=== PATIENT | female | born 1995 | race Hispanic/Latino ===

== ENCOUNTER 2017-05-13 01:09 | Emergency (ER) | payer MEDICAID ==
[2017-05-13] MEDS ORDERED: MORPHINE SULFATE 8 MG/ML VIAL ONE (01:22)
[2017-05-13] MEDS ORDERED: ONDANSETRON ODT 4 MG TAB ONE (01:22)
[2017-05-13] MEDS ORDERED: TETANUS/DIPHTHERIA TOXOID [ADULT] 0.5 ML VIAL IM ONE (01:24)
[2017-05-13] MEDS ORDERED: ACETAMINOPHEN 325 MG TAB ONE (02:19)
[2017-05-13] MEDS ORDERED: LIDOCAINE HCL 1% 20 ML VIAL ONE (02:25)
[2017-05-13] MEDS ORDERED: HYDROCODONE/ACETAMINOPHEN 10/325 MG TAB ONE (04:55)
== END 2017-05-13 05:32 | disposition home or self-care (01) ==
LOC: EDH 01:09
DX: S01.81XA Laceration without foreign body of other part of head, initial encounter (principal); S01.312A Laceration without foreign body of left ear, initial encounter; Z72.0 Tobacco use; X99.0XXA Assault by sharp glass, initial encounter; Y93.89 Activity, other specified; Y92.89 Other specified places as the place of occurrence of the external cause; Y99.8 Other external cause status
CPT/HCPCS: 12014; 70450; 70486; 90471; 90714; 96372; 99284; J2270

== ENCOUNTER 2018-05-06 21:53 | Emergency (ER) | payer MEDICAID | END 2018-05-06 23:00 | disposition home or self-care (01) | LOC: EDH 21:53 | DX: J02.9 Acute pharyngitis, unspecified (principal); J30.9 Allergic rhinitis, unspecified; Z98.890 Other specified postprocedural states | CPT/HCPCS: 87880 ==

== ENCOUNTER 2019-04-05 14:44 | Emergency (ER) | payer MEDICAID ==
[2019-04-05] MEDS ORDERED: ACETAMINOPHEN 325 MG TAB ONE (15:16)
== END 2019-04-05 15:52 | disposition home or self-care (01) ==
LOC: EDH 14:44
DX: O99.513 Diseases of the respiratory system complicating pregnancy, third trimester (principal); O99.89 Other specified diseases and conditions complicating pregnancy, childbirth and the puerperium; J02.9 Acute pharyngitis, unspecified; H92.01 Otalgia, right ear; Z3A.31 31 weeks gestation of pregnancy; Z98.890 Other specified postprocedural states
CPT/HCPCS: 87880

== ENCOUNTER 2019-04-17 21:28 | Observation (INO) | payer MEDICAID ==
[~2019-04-17] VITALS: Ht 154.9 cm; Wt 68.9 kg
[2019-04-17] MEDS ORDERED: PREN-196 PO (23:10)
[2019-04-17] MEDS ORDERED: ESOM2.5S PO (23:11)
== END 2019-04-17 23:00 | disposition home or self-care (01) ==
LOC: LDH 21:28
PROVIDERS: ADMIT Specialist; ATTEND Specialist
DX: O26.893 Other specified pregnancy related conditions, third trimester (principal); Z3A.33 33 weeks gestation of pregnancy
CPT/HCPCS: 76819; G0378 ×2

== ENCOUNTER 2019-04-28 18:06 | Observation (INO) | payer MEDICAID ==
[~2019-04-28] VITALS: Ht 154.9 cm; Wt 73.5 kg
[~2019-04-28 18:06] MED LIST: ESOM2.5S PO; PREN-196 PO
[2019-04-28 18:25] VITALS: BP 107/59
== END 2019-04-28 19:05 | disposition home or self-care (01) ==
LOC: LDH 18:06
PROVIDERS: ADMIT Specialist; ATTEND Specialist
DX: O09.293 Supervision of pregnancy with other poor reproductive or obstetric history, third trimester (principal); O34.219 Maternal care for unspecified type scar from previous cesarean delivery; Z3A.34 34 weeks gestation of pregnancy
CPT/HCPCS: 59025; 76819; G0378

== ENCOUNTER 2020-05-03 16:52 | Inpatient (IN) | payer MEDICAID ==
[~2020-05-03] VITALS: Ht 154.9 cm; Wt 76.2 kg
[2020-05-03] MEDS ORDERED: CEFAZOLIN SODIUM 1 GM VIAL IVP PRN (17:15)
[2020-05-03] MEDS ORDERED: LACTATED RINGERS 1000ML 1,000 ML IV SCH (17:15)
[2020-05-03 17:29] LABS: HEMATOCRIT 38.1 % (36-48); MEAN CORPUSCULAR HEMOGLOBIN 29.7 pg (27.0-33.0); MEAN CORPUSCULAR HGB CONC 33.1 g/dL (32.0-36.0); MEAN CORPUSCULAR VOLUME 89.9 fL (79-99); NUCLEATED RED BLOOD CELLS 0.2 % (0.0-0.19); RED BLOOD CELL COUNT(AUTO) 4.24 MIL/uL (4.00-5.50); RED CELL DISTRIBUTION WIDTH 12.7 % (11.0-15.5); WHITE BLOOD COUNT (AUTO) 9.8 K/uL (4.8-10.8)
[2020-05-03] MEDS ORDERED: METOCLOPRAMIDE 10 MG/2 ML VIAL ONE (19:09)
[2020-05-03] MEDS ORDERED: CITRIC ACID/SODIUM CITRATE 30 ML UDCUP ONE (19:13)
[2020-05-03] MEDS ORDERED: METOCLOPRAMIDE 10 MG/2 ML VIAL IVP SCH (19:15)
[2020-05-03] MEDS ORDERED: MORPHINE PF 100MG/10ML AMP IV ONE (19:23)
[2020-05-03] MEDS ORDERED: FENTANYL CITRATE PF 50 MCG/1 ML 2ML VIAL ONE (19:24)
[2020-05-03] MEDS ORDERED: ONDANSETRON 4MG INJ ONE (19:53)
[2020-05-03] MEDS ORDERED: PHENYLEPHRINE HCL 10 MG/ML 1ML VIAL IV ONE (20:20)
[2020-05-03] MEDS ORDERED: 0.9%NACL 10ML VIAL IVP PRN (21:00)
[2020-05-03] MEDS ORDERED: DEXTROSE 5 %-0.45 % NACL 1,000 ML IV PRN (21:00)
[2020-05-03] MEDS ORDERED: OXYTOCIN-LR 20 UNITS/1000 ML 1,000 ML IV PRN (21:00)
[2020-05-03] MEDS ORDERED: NALOXONE HCL 0.4 MG/1 ML ML IVP PRN ×3 (21:15)
[2020-05-03] MEDS ORDERED: LORATADINE 10 MG TABLET PO PRN (21:15)
[2020-05-03] MEDS ORDERED: EPHEDRINE SULFATE 50 MG/ML AMPULE IVP PRN (21:15)
[2020-05-03] MEDS ORDERED: DiphenhydrAMINE HCL 50 MG/ML VIAL IVP PRN (21:15)
[2020-05-03] MEDS ORDERED: ONDANSETRON 4MG INJ IVP PRN (21:15)
[2020-05-03] MEDS ORDERED: CITRIC ACID/SODIUM CITRATE 30 ML UDCUP PO SCH (21:30)
[2020-05-03] MEDS: PROMETHAZINE HCL 25 MG/ML 1ML AMPULE IM PRN (23:00)
[2020-05-03] MEDS: MEPERIDINE-PF 75 MG/ML SYG IM PRN (23:01)
[2020-05-03 23:59] VITALS: BP 135/94
[2020-05-04] VITALS (7 sets, daily range): BP systolic 109–138; BP diastolic 64–89
[2020-05-04] MEDS ORDERED: FLU VACC QS2020-21(6MOS UP)/PF 60 MCG/0.5 ML ML IM ONE ×2 (03:45→09:22)
[2020-05-04] MEDS ORDERED: DIPH,PERTUSS(ACELL),TET VAC/PF 0.5 ML VIAL IM ONE (03:45)
[2020-05-04] MEDS ORDERED: MEASLES/MUMPS/RUBELLA VACCINE, LIVE 0.5 ML/VIAL SQ ONE (03:45)
[2020-05-04] MEDS ORDERED: PREN-154 PO (05:15)
[2020-05-04] MEDS: PROMETHAZINE HCL 25 MG/ML 1ML AMPULE IM PRN (06:25)
[2020-05-04] MEDS: MEPERIDINE-PF 75 MG/ML SYG IM PRN (06:26)
[2020-05-04 06:33] LABS: HEMATOCRIT 36.4 % (36-48); MEAN CORPUSCULAR HEMOGLOBIN 29.5 pg (27.0-33.0); MEAN CORPUSCULAR HGB CONC 32.7 g/dL (32.0-36.0); MEAN CORPUSCULAR VOLUME 90.3 fL (79-99); RED BLOOD CELL COUNT(AUTO) 4.03 MIL/uL (4.00-5.50); RED CELL DISTRIBUTION WIDTH 12.6 % (11.0-15.5); WHITE BLOOD COUNT (AUTO) 10.9 K/uL (4.8-10.8)
[2020-05-04] MEDS ORDERED: IBUPROFEN 600 MG TABLET PO PRN (08:00)
[2020-05-04] MEDS ORDERED: ACETAMINOPHEN 500 MG TABLET PO PRN (08:00)
[2020-05-04] MEDS ORDERED: DIPH,PERTUSS(ACELL),TET VAC/PF 0.5 ML VIAL IM SCH (08:00)
[2020-05-04] MEDS ORDERED: MEASLES/MUMPS/RUBELLA VACCINE, LIVE 0.5 ML/VIAL SQ SCH (08:00)
[2020-05-04] MEDS ORDERED: BISACODYL 10 MG SUPP.RECT RC PRN (08:00)
[2020-05-04] MEDS: DOCUSATE SODIUM 100 MG CAP PO SCH ×2 (09:29→20:28)
[2020-05-04] MEDS: SIMETHICONE 80 MG TAB.CHEW PO PRN ×3 (09:29→21:14)
[2020-05-04] MEDS: ACETAMINOPHEN WITH CODEINE 1 TAB TAB PO PRN ×2 (13:51→17:06)
[2020-05-04] MEDS: IBUPROFEN 800 MG TAB PO SCH (20:29)
[2020-05-04] MEDS: HYDROCODONE/ACETAMINOPHEN 5/325 MG TAB PO PRN (21:15)
[2020-05-05 03:39] VITALS: BP 111/75
[2020-05-05] MEDS: HYDROCODONE/ACETAMINOPHEN 5/325 MG TAB PO PRN (03:42)
[2020-05-05] MEDS: IBUPROFEN 800 MG TAB PO SCH (05:05)
[2020-05-05 07:26] VITALS: BP 128/77
[2020-05-05] MEDS: SIMETHICONE 80 MG TAB.CHEW PO PRN (08:27)
[2020-05-05] MEDS: DOCUSATE SODIUM 100 MG CAP PO SCH (08:27)
[2020-05-05 10:13] LABS: HEPATITIS Bs ANTIGEN SCREEN P Negative (Negative)
== END 2020-05-05 12:25 | disposition home or self-care (01) | DRG 540 ==
LOC: LDH 16:52 → UNDOADMIN 16:52 → WSH 05-04 01:05 → LDH 05-04 01:05
PROVIDERS: ADMIT Specialist; ATTEND Specialist
PROC: 10D00Z1 Extraction of Products of Conception, Low, Open Approach (ICD-10-PCS; principal; 2020-05-03 21:30)
DX: O34.211 Maternal care for low transverse scar from previous cesarean delivery (principal); O60.14X0 Preterm labor third trimester with preterm delivery third trimester, not applicable or unspecified; O41.03X0 Oligohydramnios, third trimester, not applicable or unspecified; O36.8130 Decreased fetal movements, third trimester, not applicable or unspecified; Z3A.36 36 weeks gestation of pregnancy; Z37.0 Single live birth; O76 Abnormality in fetal heart rate and rhythm complicating labor and delivery
CPT/HCPCS: 36415; 59510; 85027; 86592; 86850; 86900; 86901; 87340; 90707; 90715; A4344; G0378; J0690; J2175; J2274; J2370; J2405; J2550; J2590; J2765; J3010; J7120; Q2035